=== PATIENT | female | born 1945 | race Caucasian/White ===

== ENCOUNTER → 2017-11-17 | Outpatient (CLI) | payer MEDICARE, OTHER ==
[~2017-11-17] MED LIST: BUPR150ER PO; BUPR150T2 PO; CALGLU500 PO; CELE100; CELE200 PO; CYAN500 PO; CYCL10; CYCL10 PO; ESTR1; ESTR1 PO; ESTR2 PO; ESTRADIOL PO; FISH1000 PO; GLUCOSAMINE PO; HYDMOR2 PO; LEVO750 PO; LEVSOD112 PO; LEVSOD137 PO; LEVSOD150 PO; METR500 PO; OXYACE5T; Percocet 5-3251 EACH PO; RANI150; RESVERATROL PO; TRIHYD253A PO; UBID10 PO; VENL75; VITAMIN D PO
== END ==
LOC: LAB SHORT 07:55 → PLD 07:55
DX: D22.5 Melanocytic nevi of trunk (principal)
CPT/HCPCS: 88305

== ENCOUNTER → 2017-12-09 | Outpatient (CLI) | payer MEDICARE, OTHER | END | disposition home or self-care (01) | LOC: PLD 08:11 → LAB SHORT 08:11 | DX: D22.5 Melanocytic nevi of trunk (principal) | CPT/HCPCS: 88305 ==

== ENCOUNTER → 2021-04-18 | Outpatient (CLI) | payer MEDICARE, OTHER | END | disposition home or self-care (01) | LOC: LAB 16:22 → LAB SHORT 16:22 | PROVIDERS: Family Medicine | DX: G89.4 Chronic pain syndrome (principal); Z79.899 Other long term (current) drug therapy | CPT/HCPCS: G0480 ==

== ENCOUNTER 2021-10-30 10:15 | Day surgery (SDC) | payer MEDICARE, OTHER ==
[2021-10-30] MEDS ORDERED: Amlodipine Bes2.5 MG (10:55)
[2021-10-30] MEDS ORDERED: Lisinopril2.5 MG (10:56)
== END 2021-10-30 12:47 | disposition home or self-care (01) ==
LOC: ORSCSDS 10:15
PROVIDERS: Student in an Organized Health Care Education/Training Program
PROC: 0DBP8ZX Excision of Rectum, Via Natural or Artificial Opening Endoscopic, Diagnostic (ICD-10-PCS; principal; 2021-10-30 12:00)
PROC: 0DBM8ZX Excision of Descending Colon, Via Natural or Artificial Opening Endoscopic, Diagnostic (ICD-10-PCS; principal; 2021-10-30 12:00)
PROC: 0DBK8ZX Excision of Ascending Colon, Via Natural or Artificial Opening Endoscopic, Diagnostic (ICD-10-PCS; principal; 2021-10-30 12:00)
PROC: 0DBN8ZX Excision of Sigmoid Colon, Via Natural or Artificial Opening Endoscopic, Diagnostic (ICD-10-PCS; principal; 2021-10-30 12:00)
DX: Z12.11 Encounter for screening for malignant neoplasm of colon (principal); D12.4 Benign neoplasm of descending colon; K62.1 Rectal polyp; I10 Essential (primary) hypertension; E03.9 Hypothyroidism, unspecified; G47.33 Obstructive sleep apnea (adult) (pediatric); K21.9 Gastro-esophageal reflux disease without esophagitis; Z98.84 Bariatric surgery status; I69.954 Hemiplegia and hemiparesis following unspecified cerebrovascular disease affecting left non-dominant side; Z79.899 Other long term (current) drug therapy
CPT/HCPCS: 88305; J2704; J7120

== ENCOUNTER 2022-05-24 15:39 | Emergency (ER) | payer MEDICARE, OTHER ==
[~2022-05-24] VITALS: Ht 165.1 cm; Wt 100.2 kg
[~2022-05-24 15:39] MED LIST changes: +Amlodipine Bes2.5 MG; +Lisinopril2.5 MG
[2022-05-24 16:37] LABS: BASOPHILS ABSOLUTE AUTO 0.04 K/mm3 (0.00-0.23); BASOPHILS PERCENT AUTO 1 % (0-2); EOSINOPHILS ABSOLUTE AUTO 0.18 K/mm3 (0.00-0.68); EOSINOPHILS PERCENT AUTO 3 % (0-6); Hemoglobin 10.8 g/dL (11.5-16.0); IMMATURE GRAN ABSOLUTE AUTO 0.01 K/mm3 (0.00-0.10); IMMATURE GRAN PERCENT AUTO 0 % (0-1); LYMPHOCYTES ABSOLUTE AUTO 1.53 K/mm3 (0.84-5.20); LYMPHOCYTES PERCENT AUTO 26 % (21-46); MONOCYTES ABSOLUTE AUTO 0.36 K/mm3 (0.16-1.47); MONOCYTES PERCENT AUTO 6 % (4-13); Mean Corpuscular HGB 28.3 pg (26.0-34.0); Mean Corpuscular HGB Conc 31.8 g/dL (31.5-36.5); Mean Corpuscular Volume 89 fL (80-100); Mean Platelet Volume 10.5 fL (9.1-12.4); NEUTROPHILS ABSOLUTE AUTO 3.69 K/mm3 (1.96-9.15); NEUTROPHILS PERCENT AUTO 64 % (41-73); Platelet Count 253 K/mm3 (150-400); RDW Coefficient Variation 14.2 % (11.7-14.2); RDW Standard Deviation 46.4 fL (35.1-46.3); Red Blood Cell Count 3.82 M/mm3 (3.80-5.20); White Blood Cell Count 5.81 K/mm3 (4.00-11.30)
[2022-05-24 17:05] LABS: Albumin, Blood 3.7 g/dL (3.4-5.0); Albumin/Globulin Ratio 1.2 (0.8-1.8); Bilirubin, Total 0.2 mg/dL (0.1-1.0); Bun/Creatinine Ratio 21.6 (12.0-20.0); Calcium, Blood 9.6 mg/dL (8.5-10.1); Creatinine, Blood 1.16 mg/dL (0.40-1.00); Globulin, Blood 3.2 g/dL (2.2-4.0); Potassium, Blood 4.6 mmol/L (3.5-5.5); Total Protein, Blood 6.9 g/dL (6.4-8.2)
[2022-05-24] MEDS ORDERED: GABA300 PO (17:07)
[2022-05-24] MEDS ORDERED: TIZA4 PO (17:08)
[2022-05-24] MEDS ORDERED: ESCI10 PO (17:08)
== END 2022-05-24 18:12 | disposition home or self-care (01) ==
LOC: ER 15:39
PROVIDERS: Physician Assistant
DX: I49.9 Cardiac arrhythmia, unspecified (principal); Z91.09 Other allergy status, other than to drugs and biological substances; Z88.8 Allergy status to other drugs, medicaments and biological substances; Z79.899 Other long term (current) drug therapy; Z79.890 Hormone replacement therapy; Z86.73 Personal history of transient ischemic attack (TIA), and cerebral infarction without residual deficits
CPT/HCPCS: 36415; 71046; 80053; 84484; 85025; 93005; 93010

== ENCOUNTER 2024-04-11 14:54 | Observation (INO) | payer MEDICARE, OTHER ==
[~2024-04-11] VITALS: Ht 165.1 cm; Wt 106.4 kg
[~2024-04-11 14:54] MED LIST changes: +DYAZIDE 37.5-21 EACH PO; +ESCI10 PO; +GABA300 PO; +TIZA4 PO
[2024-04-11 15:42] LABS: BASOPHILS ABSOLUTE AUTO 0.03 K/mm3 (0.00-0.23); BASOPHILS PERCENT AUTO 1 % (0-2); EOSINOPHILS PERCENT AUTO 2 % (0-6); Hematocrit 35.9 % (33.0-51.0); Hemoglobin 11.6 g/dL (11.5-16.0); IMMATURE GRAN ABSOLUTE AUTO 0.02 K/mm3 (0.00-0.10); IMMATURE GRAN PERCENT AUTO 0 % (0-1); LYMPHOCYTES ABSOLUTE AUTO 1.35 K/mm3 (0.84-5.20); LYMPHOCYTES PERCENT AUTO 21 % (21-46); MONOCYTES ABSOLUTE AUTO 0.43 K/mm3 (0.16-1.47); MONOCYTES PERCENT AUTO 7 % (4-13); Mean Corpuscular HGB 28.9 pg (26.0-34.0); Mean Corpuscular HGB Conc 32.3 g/dL (31.5-36.5); Mean Corpuscular Volume 90 fL (80-100); NEUTROPHILS ABSOLUTE AUTO 4.61 K/mm3 (1.96-9.15); NEUTROPHILS PERCENT AUTO 71 % (41-73); Platelet Count 208 K/mm3 (150-400); RDW Coefficient Variation 14.6 % (11.7-14.2); RDW Standard Deviation 48.1 fL (35.1-46.3); Red Blood Cell Count 4.01 M/mm3 (3.80-5.20); White Blood Cell Count 6.54 K/mm3 (4.00-11.30)
[2024-04-11 16:04] LABS: Albumin, Blood 3.6 g/dL (3.4-5.0); Bilirubin, Total 0.3 mg/dL (0.1-1.0); Bun/Creatinine Ratio 26.2 (12.0-20.0); Calcium, Blood 9.8 mg/dL (8.5-10.1); Creatinine, Blood 1.3 mg/dL (0.40-1.00); Globulin, Blood 3.7 g/dL (2.2-4.0); Potassium, Blood 4.4 mmol/L (3.5-5.5); Total Protein, Blood 7.3 g/dL (6.4-8.2)
[2024-04-11] MEDS ORDERED: FLU VACC TS2024-25(6MOS UP)/PF 45 MCG/0.5 ML SYRINGE IM SCH (21:25)
[2024-04-11] MEDS ORDERED: Ondansetron 4 MG TAB PO PRN (21:25)
[2024-04-11] MEDS ORDERED: Acetaminophen 325 MG TABLET PO PRN (21:25)
[2024-04-11] MEDS ORDERED: AMLO10 PO (21:47)
[2024-04-11] MEDS ORDERED: ELIQUIS5 M2 PO (21:48)
[2024-04-11] MEDS ORDERED: ATOR10 PO (21:49)
[2024-04-11] MEDS ORDERED: ESCI20 PO (21:50)
[2024-04-11] MEDS ORDERED: ESTRADIOL0.5 MG PO (21:51)
[2024-04-11] MEDS ORDERED: GABA300 PO (21:52)
[2024-04-11] MEDS ORDERED: SYNTHROID125 MC1 PO (21:53)
[2024-04-11] MEDS ORDERED: LOSARTAN POTAS100 M1 PO (21:54)
[2024-04-11] MEDS ORDERED: triamterene 75 mg-hy PO (21:55)
[2024-04-11] MEDS ORDERED: NS 1,000 ML IV SCH ×2 (22:05→22:40)
[2024-04-11] MEDS ORDERED: CALCITRIOL0.25 MC4 PO (22:53)
[2024-04-11 22:55] VITALS: BP 141/67
[2024-04-11] MEDS ORDERED: OLMESARTAN MEDO40 MG PO (22:56)
[2024-04-12] MEDS ORDERED: Apixaban 5 MG Tab PO SCH ×2 (00:21→09:00)
[2024-04-12] MEDS ORDERED: Docusate Sodium 250 MG Cap PO SCH (00:30)
[2024-04-12 03:24] VITALS: BP 138/81
[2024-04-12] MEDS ORDERED: Ondansetron HCl 2 MG / ML 2ML Vial IV PRN (03:40)
--- NOTE | 2024-04-12 03:42 | NUR ---
ATTEMPTED TO PERFORM ORTHOSTATIC VS ON PT. PT WHEN LAYING DOWN FLAT HAD C/O OF ROOM SPINNING, BUT IT SUBSIDED AFTER A COUPLE MINUTES AND VS TAKEN. PT THEN SAT UP ON SIDE OF BED AND AGAIN BECAME DIZZY AND STARTING VOMITTING. ORTHOSTATIC VS STOPPED AND HOSPITALIST NOTIFIED AND PO ZOFRAN CHANGED TO IV. NO FURTHER ORDERS GIVEN AT THIS TIME.
[2024-04-12] MEDS ORDERED: Calcium Carbonate 500 MG Tab Chew PO PRN (04:40)
[2024-04-12 04:41] LABS: BASOPHILS ABSOLUTE AUTO 0.04 K/mm3 (0.00-0.23); BASOPHILS PERCENT AUTO 1 % (0-2); EOSINOPHILS ABSOLUTE AUTO 0.12 K/mm3 (0.00-0.68); EOSINOPHILS PERCENT AUTO 2 % (0-6); Hematocrit 33.6 % (33.0-51.0); Hemoglobin 10.8 g/dL (11.5-16.0); IMMATURE GRAN ABSOLUTE AUTO 0.01 K/mm3 (0.00-0.10); IMMATURE GRAN PERCENT AUTO 0 % (0-1); LYMPHOCYTES ABSOLUTE AUTO 1.54 K/mm3 (0.84-5.20); LYMPHOCYTES PERCENT AUTO 28 % (21-46); MONOCYTES ABSOLUTE AUTO 0.52 K/mm3 (0.16-1.47); MONOCYTES PERCENT AUTO 10 % (4-13); Mean Corpuscular HGB Conc 32.1 g/dL (31.5-36.5); Mean Corpuscular Volume 90 fL (80-100); Mean Platelet Volume 10.1 fL (9.1-12.4); NEUTROPHILS ABSOLUTE AUTO 3.23 K/mm3 (1.96-9.15); NEUTROPHILS PERCENT AUTO 59 % (41-73); Platelet Count 200 K/mm3 (150-400); RDW Coefficient Variation 14.6 % (11.7-14.2); RDW Standard Deviation 48.6 fL (35.1-46.3); Red Blood Cell Count 3.72 M/mm3 (3.80-5.20); White Blood Cell Count 5.46 K/mm3 (4.00-11.30)
--- NOTE | 2024-04-12 04:42 | NUR ---
NOTIFIED BY APPAREL MANUFACTURE INSTRUCTOR THAT PT HR DROPPING INTO HIGH 30'S AND 40'S FOR A FEW BEATS AT TIMES. PT ASSESSED AND ASYMPTOMATIC, NO C/O OF DIZZYNESS, SOB. HOSPITALIST NOTIFIED AND NO NEW ORDERS GIVEN. HOSPITALIST SAID TO NOTIFY IF PT BECOMES SYMPTOMATIC.
[2024-04-12 05:03] LABS: Albumin/Globulin Ratio 0.9 (0.8-1.8); Bilirubin, Total 0.4 mg/dL (0.1-1.0); Bun/Creatinine Ratio 23.5 (12.0-20.0); Calcium, Blood 9.1 mg/dL (8.5-10.1); Creatinine, Blood 1.19 mg/dL (0.40-1.00); Globulin, Blood 3.3 g/dL (2.2-4.0); Total Protein, Blood 6.3 g/dL (6.4-8.2)
--- NOTE | 2024-04-12 05:15 | NUR ---
SHIFT SUMMARY NOC ADMIT FROM ED WITH DX POSTURAL DIZZYNESS WITH NEAR SYNCOPE EPISODE. PT A/O X 4. SBA/FWW TO BATHROOM FOR SAFETY. VSS. PLEASANT AND COOPERATIVE WITH CARE. ON TELE AFIB IN 70'S, BUT DROPPING TO HIGH 30'S AND LOW 40'S A FOR A FEW BEATS ON OCCASION, PT DENIED DIZZYNESS, SOB WHEN ASSESSED. DURING ORTHOSTATIC VS PT HAD C/O OF DIZZYNESS WHEN LYING FLAT THAT RESOLVED, BUT THEN RETURNED WHEN SITTING UP AT BEDSIDE WHERE PT BECAME NAUSEUOS AND VOMITTED. IV ZOFRAN GIVEN.NS @ 125 ML/HR X 1 BAG INFUSING. RX HAS BEEN RECONCILED. PT HAS VL CAROTID-CERBRAL DUPLEX SCHEDULED FOR TODAY. PT REPORTS USING CPAP FOR SLEEPING FOR EVY, BUT DECLINED TO HAVE RT COME SET UP CPAP WHILE ON UNIT. PT DID REPORT TAKING OTC COLACE 750 MG @ BEDTIME DUE TO PAST GASTRIC BYPASS AND BOWEL OBSTRUCTION AND ORDER PUT IN AND GIVEN. PT CURRENTLY RESTING WITH BED IN LOWEST POSITION, AND CALL LIGHT WITHIN REACH.
[2024-04-12] MEDS ORDERED: Levothyroxine Sodium 0.125 MG Tab PO SCH (06:00)
[2024-04-12 07:18] VITALS: BP 160/85
[2024-04-12] MEDS ORDERED: Citalopram Hydrobromide 10 MG TAB PO SCH (09:00)
[2024-04-12] MEDS ORDERED: Losartan Potassium 50 MG Tab PO SCH (09:00)
[2024-04-12] MEDS ORDERED: Triamter/HCthiazide 75/50 MG 1 TAB TAB PO SCH (09:00)
[2024-04-12] MEDS ORDERED: Enoxaparin 40 MG/0.4 ML SYR SC SCH (09:00)
[2024-04-12] MEDS ORDERED: AmLODIPine Besylate 5 MG Tab PO SCH (09:00)
[2024-04-12] MEDS ORDERED: Atorvastatin 10 MG Tab PO SCH (09:00)
[2024-04-12] MEDS ORDERED: Meclizine HCl 25 MG Tab PO PRN (09:15)
[2024-04-12] MEDS ORDERED: MULVITA PO (10:24)
[2024-04-12] MEDS ORDERED: OMEGA-3 FISH O1 EAC6 PO (10:25)
[2024-04-12] MEDS ORDERED: Colace250 MG PO (10:26)
[2024-04-12] MEDS ORDERED: OYSTER SHELL C500 MG PO (10:26)
[2024-04-12] MEDS ORDERED: CO Q10100 MG PO (10:26)
[2024-04-12 14:35] VITALS: BP 123/86
[2024-04-12] MEDS ORDERED: MECL25 PO (17:17)
--- NOTE | 2024-04-12 17:54 | NUR ---
PT AWAKE DURING SHIFT REPORT, SITTING UPRIGHT IN BED. PT ADMITTED FOR C/O DIZZINESS WHEN LYING DOWN. DR RAM IN TO SEE PT AND DISCUSS PLAN OF CARE. NEW ORDERS PLACED. MECLIZINE ORDERED AND GIVEN PER EMAR. PT REPORTED IT EFFECTIVE. PT THEN REQUESTING TO GO HOME. DR RAM NOTIFIED. D/C ORDERS PLACED. MEDS FAXED TO [facility] PER PT REQUEST. D/C INSTRUCTIONS REVIEWED WITH PT; VERBALIZED UNDERSTANDING. [facility] WITH ALL BELONGINGS.
== END 2024-04-12 17:47 | disposition home or self-care (01) ==
LOC: ER 14:54 → MEDS 14:55
PROVIDERS: Physician Assistant; Student in an Organized Health Care Education/Training Program; ADMIT Internal Medicine
DX: R42 Dizziness and giddiness (principal); R55 Syncope and collapse; I12.9 Hypertensive chronic kidney disease with stage 1 through stage 4 chronic kidney disease, or unspecified chronic kidney disease; E11.22 Type 2 diabetes mellitus with diabetic chronic kidney disease; N18.9 Chronic kidney disease, unspecified; I48.91 Unspecified atrial fibrillation; F41.8 Other specified anxiety disorders; E03.9 Hypothyroidism, unspecified; D64.9 Anemia, unspecified; Z79.890 Hormone replacement therapy; Z79.01 Long term (current) use of anticoagulants; Z79.899 Other long term (current) drug therapy; Z88.8 Allergy status to other drugs, medicaments and biological substances; Z91.048 Other nonmedicinal substance allergy status; Z90.49 Acquired absence of other specified parts of digestive tract; Z98.84 Bariatric surgery status; M47.26 Other spondylosis with radiculopathy, lumbar region; M41.9 Scoliosis, unspecified; M48.07 Spinal stenosis, lumbosacral region; M25.78 Osteophyte, vertebrae; M51.16 Intervertebral disc disorders with radiculopathy, lumbar region; M46.06 Spinal enthesopathy, lumbar region; M51.379 Other intervertebral disc degeneration, lumbosacral region without mention of lumbar back pain or lower extremity pain; Z98.890 Other specified postprocedural states
CPT/HCPCS: 36415; 70450; 72148; 80053; 83735; 85025; 93005; 93010; 93880; 96361; 96374; 99285-25; A9270; G0378; J2405; J7030

== ENCOUNTER → 2024-06-18 | Outpatient (CLI) | payer MEDICARE, OTHER ==
[~2024-06-18] MED LIST changes: +AMLO10 PO; +ATOR10 PO; +CALCITRIOL0.25 MC4 PO; +CO Q10100 MG PO; +Colace250 MG PO; +ELIQUIS5 M2 PO; +ESCI20 PO; +ESTRADIOL0.5 MG PO; +LOSARTAN POTAS100 M1 PO; +MECL25 PO; +MULVITA PO; +OLMESARTAN MEDO40 MG PO; +OMEGA-3 FISH O1 EAC6 PO; +OYSTER SHELL C500 MG PO; +SYNTHROID125 MC1 PO; +triamterene 75 mg-hy PO
[2024-06-18 16:21] LABS: Appearance, Urine Clear (Clear); Bilirubin, Urine Neg (Neg); Color, Urine Yellow (P-Yellow); Glucose Qualitative, Urine Neg (Normal); Ketones, Urine Neg (Neg); Leukocyte Esterase, Urine Neg (Neg); Nitrite, Urine Neg (Neg); Protein, Urine Neg (Neg); Source, Urine Clean Catch; Urobilinogen, Urine NORM (Normal)
[2024-06-18 16:22] LABS: Blood, Urine Neg (Neg)
[2024-06-18 19:34] LABS: Creatinine, Urine Random 92.9 mg/dL (27.00-270.00); Microalb/Creat Ratio UR, Rand 8.45 mg/g (0.000-30.000); Microalbumin, Random Urine 7.85 mg/L (0.000-20.000)
== END ==
LOC: LAB SHORT 16:04 → LAB 16:04
PROVIDERS: Hospitalist
DX: I12.9 Hypertensive chronic kidney disease with stage 1 through stage 4 chronic kidney disease, or unspecified chronic kidney disease (principal); N18.32 Chronic kidney disease, stage 3b; R82.90 Unspecified abnormal findings in urine
CPT/HCPCS: 81003; 82043; 82570